=== PATIENT | male | born 1970 | race American Indian/Alaskan Native ===

== ENCOUNTER 2017-06-19 18:37 | Emergency (ER) | payer SELFPAY ==
[2017-06-19] MEDS ORDERED: ASPIRIN PO ONE (20:20)
[2017-06-19 20:22] VITALS: BP 168/124
[2017-06-19 20:54] LABS: Hematocrit 43.8 % (35.5-45.6); Hemoglobin 14.4 gm/dl (11.8-15.2); Mean Corpuscular HGB Conc 33 % (32-34); Mean Corpuscular Hemoglobin 30 pg (28-32); Mean Corpuscular Volume 91 fl (84-94); Red Blood Count 4.83 M/mm3 (3.65-5.03)
[2017-06-19 20:55] LABS: Platelet Count 318 K/mm3 (140-440); Red Cell Distribution Width 14.6 % (13.2-15.2)
[2017-06-19 21:02] LABS: BUN/Creatinine Ratio 18; Blood Urea Nitrogen 18 mg/dL (9-20); Calcium 8.6 mg/dL (8.4-10.2); Hemolysis Index 12
[2017-06-19 21:36] LABS: Total Cells Counted 100
[2017-06-19 21:37] LABS: Platelet Estimate Consistent w Auto; RBC Morphology Normal
== END 2017-06-19 21:00 | disposition left against medical advice (07) ==
LOC: ED 18:37
DX: T78.40XA Allergy, unspecified, initial encounter (principal); Y92.9 Unspecified place or not applicable; Z53.21 Procedure and treatment not carried out due to patient leaving prior to being seen by health care provider
CPT/HCPCS: 36415; 80048; 84484; 85007; 85025; 93005; 93010